=== PATIENT | male | born 1980 ===

== ENCOUNTER 2017-01-23 17:30 | Emergency (ER) | payer MEDICAID ==
[2017-01-23 18:06] VITALS: BP 122/84; PULSE 82; RESP 16; TEMP 97.6; O2SAT 99
[2017-01-23] MEDS ORDERED: Fluorescein 1 mg Ophthalmic Strip ONE (18:17)
--- NOTE | 2017-01-23 18:23 | ED PDOC ---
HPI: Eye Injury/Pain Time Seen by Provider: 01/23/17 18:13 Chief Complaint (Nursing): Eye Problem Chief Complaint (Provider): eye pain History Per: Patient History/Exam Limitations: no limitations Onset/Duration Of Symptoms: Days (x1) Current Symptoms Are (Timing): Still Present Additional Complaint(s): Jensen Townsend is a 36 year old male that presents to the ED with a chief complaint of left eye pain that started yesterday. Patient works as a trucker hand, and thinks that while he was working yesterday something may have flown into his left eye, causing his discomfort. He states that he woke up this morning with clear discharge coming out of his left eye. He does normally wear contact lenses but he did not put the left contact in today. Past Medical History Reviewed: Historical Data, Nursing Documentation, Vital Signs Vital Signs: Last Vital Signs Temp 97.6 F 01/23/17 18:04 Pulse 82 01/23/17 18:04 Resp 16 01/23/17 18:04 BP 122/84 01/23/17 18:04 Pulse Ox 99 01/23/17 18:04 - Medical History PMH: No Chronic Diseases - Surgical History Other surgeries: Right shoulder surgery - Family History Family History: States: No Known Family Hx - Living Arrangements Living Arrangements: With Family - Social History Current smoker - smoking cessation education provided: No Alcohol: Social Drugs: Denies - Home Medications Home Medications: Ambulatory Orders Medication Instructions Recorded Tobramycin [Tobrex] 5 ml TOP QID #1 bottle 01/23/17 - Allergies Allergies/Adverse Reactions: Allergies Allergy/AdvReac Type Severity Reaction Status Date / Time No Known Allergies Allergy Verified 01/23/17 18:04 Review of Systems ROS Statement: Except As Marked, All Systems Reviewed And Found Negative Eyes: Positive for: Pain (Left eye pain, FB sensation) Physical Exam - Reviewed Nursing Documentation Reviewed: Yes Vital Signs Reviewed: Yes - Physical Exam Appears: Positive for: Non-toxic, No Acute Distress Head Exam: Positive for: ATRAUMATIC, NORMOCEPHALIC Skin: Positive for: Normal Color, Warm Eye Exam: Positive for: EOMI, PERRL, Conjunctival injection (left eye) Neurologic/Psych: Positive for: Alert, Oriented. Negative for: Motor/Sensory Deficits - ECG O2 Sat by Pulse Oximetry: 99 (RA) Pulse Ox Interpretation: Normal Medical Decision Making Medical Decision Making: Impression: 36 y/o male with left eye pain Plan: Visual Acuity R 20/10 L 20/70 B/L 20/13 Procedure Note: 2 drops of Tetracaine applied to left eye followed by stain with fluorescein strip. Examination under blue light demonstrates no foreign body in cornea or upon lid eversion but corneal abrasion is noted at 12:00. Patient tolerated procedure well with no immediate complications. Patient given Rx for Tobrex and advised to use Tylenol or Advil for pain as needed. Advised patient to follow up with nurse instructor in 2 days. Patient was instructed not to use contact lens in affected eye until nurse instructor says it is ok to resume use. Stable for discharge home. Scribe Attestation: Documented by Julia Lowery, acting as a scribe for Pooja Arriaga PA-C. Provider Scribe Attestation: All medical record entries made by the Scribe were at my direction and personally dictated by me. I have reviewed the chart and agree that the record accurately reflects my personal performance of the history, physical exam, medical decision making, and the department course for this patient. I have also personally directed, reviewed, and agree with the discharge instructions and disposition. Disposition - Clinical Impression Clinical Impression: Corneal abrasion - Patient ED Disposition Is Patient to be Admitted: No Counseled Patient/Family Regarding: Studies Performed, Diagnosis, Need For Followup, Rx Given - Disposition Referrals: Gamaliel aGn MD [Staff Provider] - Disposition: Routine/Home Disposition Time: 18:21 Condition: STABLE Additional Instructions: Apply drops as directed. Over the counter advil or tylenol as needed for pain. Follow up on Wednesday with nurse instructor. Do not resume use of contact lenses until nurse instructor tells you it is okay to resume use. Prescriptions: Tobramycin [Tobrex] 5 ml TOP QID #1 bottle Instructions: Corneal Abrasion (ED) Forms: [employer] ([place])
== END 2017-01-23 18:30 | disposition home or self-care (01) ==
LOC: H.ER 17:30
DX: S05.52XA Penetrating wound with foreign body of left eyeball, initial encounter (principal); Y92.89 Other specified places as the place of occurrence of the external cause

== ENCOUNTER 2017-10-26 18:42 | Emergency (ER) | payer SELFPAY ==
[2017-10-26 19:00] VITALS: BP 140/80; PULSE 103; RESP 20; TEMP 98.1; O2SAT 100
[2017-10-26] MEDS ORDERED: PROPARACAINE/FLUORESCEIN SOD 100 DROP/5 ML BOTTLE ONE (19:25)
[2017-10-26] MEDS ORDERED: PROPARACAINE/FLUORESCEIN SOD 100 DROP/5 ML BOTTLE OU STA (19:43)
--- NOTE | 2017-10-26 19:43 | ED PDOC ---
HPI: Eye Injury/Pain Time Seen by Provider: 10/26/17 18:58 Chief Complaint (Nursing): Eye Problem Chief Complaint (Provider): Eye Problem History Per: Patient History/Exam Limitations: no limitations Onset/Duration Of Symptoms: Days Current Symptoms Are (Timing): Still Present Associated Symptoms: Pain, FB Sensation, Itching, Discharge From Eye Additional Complaint(s): 37 y/o male with no significant PMHx presents to the ED complaining of left eye pain, onset yesterday. Patient reports he was getting out of work when his left eye began to irritate him. Patient states he took his contacts out immediately after his arrival home from work. Patient reports pain worsened today making it difficult to open his eyes this morning, very itchy, watery and irritating. Patient also reports of a foreign body sensation in his left eye. Denies pain or irritation on the right eye, contact use after onset and any other complaints. PMD: None Provided Past Medical History Reviewed: Historical Data, Nursing Documentation, Vital Signs Vital Signs: Last Vital Signs Temp 98.1 F 10/26/17 18:58 Pulse 103 H 10/26/17 18:58 Resp 20 10/26/17 18:58 BP 140/80 10/26/17 18:58 Pulse Ox 100 10/26/17 18:58 - Medical History PMH: No Chronic Diseases - Surgical History Surgical History: No Surg Hx - Family History Family History: States: Unknown Family Hx - Immunization History Hx Tetanus Toxoid Vaccination: No Hx Influenza Vaccination: No Hx Pneumococcal Vaccination: No - Home Medications Home Medications: Ambulatory Orders Medication Instructions Recorded Tobramycin [Tobrex] 5 ml TOP QID #1 bottle 01/23/17 Ciprofloxacin 0.3% [Ciloxan 0.3% 2 drop BOTHEYES Q2 2 Days #1 bottle 10/26/17 Ophth SOLN] - Allergies Allergies/Adverse Reactions: Allergies Allergy/AdvReac Type Severity Reaction Status Date / Time No Known Allergies Allergy Verified 10/26/17 18:58 Review of Systems ROS Statement: Except As Marked, All Systems Reviewed And Found Negative Eyes: Positive for: Pain (left), Other Physical Exam - Reviewed Nursing Documentation Reviewed: Yes Vital Signs Reviewed: Yes - Physical Exam Appears: Positive for: No Acute Distress Head Exam: Positive for: ATRAUMATIC, NORMOCEPHALIC Skin: Positive for: Normal Color, Warm, Dry Eye Exam: Positive for: Other (Positive uptake with fluroscene tain surrounding iris from roughly 3 to 6 o'clock. ) Neck: Positive for: Normal, Painless ROM Cardiovascular/Chest: Positive for: Regular Rate, Rhythm Respiratory: Positive for: Normal Breath Sounds. Negative for: Respiratory Distress Extremity: Positive for: Normal ROM. Negative for: Deformity Neurologic/Psych: Positive for: Alert, Oriented (x3). Negative for: Motor/ Sensory Deficits - ECG O2 Sat by Pulse Oximetry: 100 (RA) Pulse Ox Interpretation: Normal Medical Decision Making Medical Decision Making: Time: 1943 Plan: -- Flucaine Eye Drops 1 drop OU Scribe Attestation: Documented by Sacha Saenz, acting as a scribe for Pooja Sy PA-C. Provider Scribe Attestation: All medical record entries made by the Scribe were at my direction and personally dictated by me. I have reviewed the chart and agree that the record accurately reflects my personal performance of the history, physical exam, medical decision making, and the department course for this patient. I have also personally directed, reviewed, and agree with the discharge instructions and disposition. Disposition - Clinical Impression Clinical Impression: Corneal abrasion, Conjunctivitis - Patient ED Disposition Is Patient to be Admitted: No - Disposition Disposition: Routine/Home Disposition Time: 21:17 Condition: STABLE Prescriptions: Ciprofloxacin 0.3% [Ciloxan 0.3% Ophth SOLN] 2 drop BOTHEYES Q2 2 Days #1 bottle Instructions: Corneal Abrasion, Conjunctivitis ([place]) Forms: [email or web address] ([place]ian)
== END 2017-10-26 20:13 | disposition home or self-care (01) ==
LOC: H.ER 18:42
DX: H10.9 Unspecified conjunctivitis (principal)

== ENCOUNTER 2018-06-05 11:45 | Emergency (ER) | payer OTHER ==
[2018-06-05 11:51] VITALS: RESP 18
[2018-06-05] MEDS ORDERED: Lidocaine 5% Patch TD STA (12:21)
--- NOTE | 2018-06-05 12:37 | ED PDOC ---
HPI: Back Time Seen by Provider: 06/05/18 12:06 Chief Complaint (Nursing): Back Pain Chief Complaint (Provider): Back Pain History Per: Patient History/Exam Limitations: no limitations Onset/Duration Of Symptoms: Days (x3) Current Symptoms Are (Timing): Still Present Additional Complaint(s): 37 year old male presents to the ED for evaluation of atraumatic right sided l ower back pain for the past three days worse with movement but transiently relieved by Tylenol, last dose yesterday. 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 He denies requiring any treatment in the past eight years. Additionally denies hematuria, dysuria, incontinence, abdominal pain, weakness, numbness, tingling, fever, and chills. PMD: none provided Past Medical History Reviewed: Historical Data, Nursing Documentation, Vital Signs Vital Signs: Last Vital Signs Temp 98.2 F 06/05/18 11:51 Pulse 85 06/05/18 11:51 Resp 18 06/05/18 11:51 BP 134/86 06/05/18 11:51 Pulse Ox 99 06/05/18 11:51 - Medical History PMH: Back Problems Denies: Chronic Kidney Disease - Surgical History Other surgeries: right shoulder - Family History Family History: States: Unknown Family Hx - Social History Current smoker - smoking cessation education provided: Yes (cigarettes and cigars) Alcohol: Social Drugs: Denies - Immunization History Hx Tetanus Toxoid Vaccination: No Hx Influenza Vaccination: No Hx Pneumococcal Vaccination: No - Home Medications Home Medications: Ambulatory Orders Medication Instructions Recorded Tobramycin [Tobrex] 5 ml TOP QID #1 bottle 01/23/17 Ciprofloxacin 0.3% [Ciloxan 0.3% 2 drop BOTHEYES Q2 2 Days #1 bottle 10/26/17 Ophth SOLN] Cyclobenzaprine [Cyclobenzaprine 10 mg PO Q8 PRN #10 tab 06/05/18 HCl] Naproxen [Naprosyn] 500 mg PO BID PRN #10 tab 06/05/18 - Allergies Allergies/Adverse Reactions: Allergies Allergy/AdvReac Type Severity Reaction Status Date / Time No Known Allergies Allergy Verified 10/26/17 18:58 Review of Systems ROS Statement: Except As Marked, All Systems Reviewed And Found Negative Constitutional: Negative for: Fever, Chills, Weakness Gastrointestinal: Negative for: Abdominal Pain Genitourinary Male: Negative for: Dysuria, Incontinence, Hematuria Musculoskeletal: Positive for: Back Pain (atraumatic right sided lower back pain worse with movement) Neurological: Negative for: Numbness, Other (tingling) Physical Exam - Reviewed Nursing Documentation Reviewed: Yes Vital Signs Reviewed: Yes - Physical Exam Appears: Positive for: No Acute Distress Skin: Positive for: Normal Color, Warm, Dry. Negative for: Rash Gastrointestinal/Abdominal: Positive for: Normal Exam, Soft. Negative for: Tenderness Back: Positive for: Normal Inspection, Muscle Spasm (right sided para lumbar). Negative for: L CVA Tenderness, R CVA Tenderness, Vertebral Tenderness Extremity: Positive for: Other (lower extremity strength 5/5 bilaterally) Neurologic/Psych: Positive for: Alert, Oriented (x3) - Laboratory Results Result Diagrams: 06/05/18 14:40 06/05/18 14:40 - ECG O2 Sat by Pulse Oximetry: 99 (RA) Pulse Ox Interpretation: Normal Medical Decision Making Medical Decision Making: Time: 1221 Initial Impression: right sided back pain Initial Plan: --Lidoderm 1 ea TD --Toradol 30mg IM --LS Spine XR --Urinalysis --Reevaluation 141 XR FINDINGS: BONES: Normal alignment. No listhesis. No fracture. DISC SPACES: Unremarkable. OTHER FINDINGS: None. IMPRESSION: Unremarkable radiographs of the lumbar spine. 1429 Patient's UA showed small hematuria. Due to location of pain and patient stating this pain is dissimilar from previous times, CT abd/pelvis ordered and additional blood work (CBC and CMP) ordered to rule out kidney stones. CT abd/pelvis w/o contrast: negative. Advised to f/u with [facility] and urologist for further evaluation but return to ED immediately if symptoms worsen. Also informed of risk of drowsiness with flexeril. Pt. educated to not use flexeril if driving or drinking alcohol. Scribe Attestation: Documented by Skylar Ozuna, acting as a scribe for Yoan Razo PA-C. Provider Scribe Attestation: All medical record entries made by the Scribe were at my direction and personally dictated by me. I have reviewed the chart and agree that the record accurately reflects my personal performance of the history, physical exam, medical decision making, and the department course for this patient. I have also personally directed, reviewed, and agree with the discharge instructions and disposition. Disposition - Clinical Impression Clinical Impression: Low back pain, Hematuria - Patient ED Disposition Is Patient to be Admitted: No - Disposition Referrals: [facility] [Outside] [facility] [Outside] Iliana Yanes MD [Medical Doctor] - Disposition: Routine/Home Disposition Time: 15:14 Condition: IMPROVED Additional Instructions: FOLLOW UP WITH [facility] FOR FURTHER EVALUATION RETURN TO ED IMMEDIATELY IF SYMPTOMS WORSEN LASHON RODRIGUEZ, thank you for letting us take care of you today. Your provider was Dorothy Michele MD and you were treated for LOWER BACK PAIN. The emergency medical care you received today was directed at your acute symptoms. If you were prescribed any medication, please fill it and take as directed. It may take several days for your symptoms to resolve. Return to the Emergency Department if your symptoms worsen, do not improve, or if you have any other problems. Please contact your doctor or call one of the physicians/clinics you have been referred to that are listed on the Patient Visit Information form that is included in your discharge packet. Bring any paperwork you were given at discharge with you along with any medications you are taking to your follow up visit. Our treatment cannot replace ongoing medical care by a primary care provider outside of the emergency department. Thank you for allowing the [facility] team to be part of your care today. If you had an X-Ray or CT scan: A Radiologist will review the ED reading if any change in treatment is needed we will contact you. If you had a blood, urine, or wound culture: It will take several days for the results, if any change in treatment is needed we will contact you. If you had an STI test: It will take 48 hours for the results. Please call after 1 week if you have not heard back. Prescriptions: Cyclobenzaprine [Cyclobenzaprine HCl] 10 mg PO Q8 PRN #10 tab PRN Reason: Muscle Spasm Naproxen [Naprosyn] 500 mg PO BID PRN #10 tab PRN Reason: Pain Instructions: Low Back Pain (DC), Blood in the Urine (Hematuria), Adult (DC) Forms: [employer] ([place]izen [place]), [facility] ED School/Work Excuse Print Language: TAJIK
[2018-06-05] MEDS ORDERED: Lidocaine 5% Patch TD ONE (12:58)
[2018-06-05 14:10] LABS: SQUAMOUS EPITHIAL < 1 /hpf (0-5); URINE BILIRUBIN NEGATIVE (NEGATIVE); URINE BLOOD SMALL (NEGATIVE); URINE CLARITY CLEAR (Clear); URINE COLOR YELLOW (YELLOW); URINE GLUCOSE (UA) NEG (NEGATIVE); URINE LEUKOCYTE ESTERASE NEG Leu/uL (Negative); URINE PROTEIN NEGATIVE (NEGATIVE); URINE UROBILINOGEN 0.2-1.0 mg/dL (0.2-1.0)
--- NOTE | 2018-06-05 14:20 | RAD ---
Date of service: 06/05/2018 PROCEDURE: Radiographs of the Lumbar Spine. HISTORY: pain COMPARISON: No prior. FINDINGS: BONES: Normal alignment. No listhesis. No fracture. DISC SPACES: Unremarkable. OTHER FINDINGS: None. IMPRESSION: Unremarkable radiographs of the lumbar spine.
--- NOTE | 2018-06-05 15:09 | CT ---
Date of service: 06/05/2018 PROCEDURE: CT Abdomen and Pelvis without intravenous contrast HISTORY: R sided low back pain COMPARISON: None. TECHNIQUE: Contiguous images were obtained from the domes of the diaphragms to the upper thighs without the administration of intravenous contrast. Oral contrast was not administered. Radiation dose: Total exam DLP = 899.22 mGy-cm. This CT exam was performed using one or more of the following dose reduction techniques: Automated exposure control, adjustment of the mA and/or kV according to patient size, and/or use of iterative reconstruction technique. FINDINGS: LOWER THORAX: Unremarkable. LIVER: Hepatic steatosis. No gross lesion or ductal dilatation. GALLBLADDER AND BILE DUCTS: Unremarkable. PANCREAS: Unremarkable. No gross lesion or ductal dilatation. SPLEEN: Unremarkable. ADRENALS: Unremarkable. No mass. KIDNEYS AND URETERS: Unremarkable. No hydronephrosis. No solid mass. VASCULATURE: Unremarkable. No aortic aneurysm. No aortic atherosclerotic calcification or mural plaque present. BOWEL: Unremarkable. No obstruction. No gross mural thickening. APPENDIX: Unremarkable. Normal appendix. PERITONEUM: Unremarkable. No free fluid. No free air. LYMPH NODES: Unremarkable. No enlarged lymph nodes. BLADDER: Unremarkable. REPRODUCTIVE: Unremarkable. BONES: No acute fracture. OTHER FINDINGS: None. IMPRESSION: No acute abdominal pelvic pathology.
[2018-06-05 15:10] LABS: BASO % 0.4 % (0.0-2.0); EOS # 0.2 K/uL (0.0-0.7); EOS % 2.4 % (0.0-4.0); HEMOGLOBIN 13.8 g/dL (12.0-18.0); LYMPH # 1.7 K/uL (1.0-4.3); LYMPH % 19.9 % (20.0-40.0); MEAN CELL VOLUME 84.3 fl (80.0-94.0); MEAN CORPUSCULAR HEMOGLOBIN 28.3 pg (27.0-31.0); MEAN CORPUSCULAR HGB CONC 33.5 g/dL (33.0-37.0); MONO # 0.8 K/uL (0.0-0.8); MONO % 9.8 % (0.0-10.0); NEUT # 5.7 K/uL (1.8-7.0); NEUT % 67.5 % (50.0-75.0); NRBC % 0.2 % (0.0-0.0); RBC 4.88 Mil/uL (4.40-5.90); RED CELL DISTRIBUTION WIDTH 13.3 % (11.5-14.5); WHITE BLOOD COUNT 8.5 K/uL (4.8-10.8)
[2018-06-05 15:35] LABS: ALB/GLOB RATIO 1.1 (1.0-2.1); ALBUMIN 4.4 g/dL (3.5-5.0); ALT/SGPT 39 U/L (21-72); AST/SGOT 40 U/L (17-59); BLOOD UREA NITROGEN 11 mg/dl (9-20); CALCIUM 9.6 mg/dL (8.4-10.2); GFR NON-AFRICAN AMERICAN > 60
[2018-06-05 15:54] VITALS: BP 112/79; PULSE 65; TEMP 97.9
[2018-06-05 22:35] VITALS: O2SAT 99
== END 2018-06-05 15:55 | disposition home or self-care (01) ==
LOC: H.ER 11:45
DX: M54.5 Low back pain (principal); R31.9 Hematuria, unspecified; F17.290 Nicotine dependence, other tobacco product, uncomplicated
CPT/HCPCS: 72100; 74176; 80053; 81003; 85025; 96372; 99283; J1885